=== PATIENT | male | born 1980 | race Two or more races ===

== ENCOUNTER 2017-10-09 19:47 | Emergency (ER) | payer BC ==
[2017-10-09] MEDS: fentaNYL PF VIAL 100 MCG/2 ML VIAL IV (21:04)
[2017-10-09] MEDS: ONDANSETRON PF 4 MG/2 ML VIAL. IV (21:04)
[2017-10-09 21:14] LABS: ADD MAN DIFF? NO
[2017-10-09 21:15] LABS: BASO % 0 % (0-3); EOS # 0.1 x10^3/uL (0.0-0.7); EOS % 1 % (0-3); HEMATOCRIT 41.7 % (39.0-53.0); HEMOGLOBIN 14.4 g/dL (13.0-17.5); LYMPH # 2.1 x10^3/uL (1.0-4.8); LYMPH % 17 % (24-48); MEAN CORPUSCULAR HEMOGLOBIN 32 pg (25-35); MEAN CORPUSCULAR HGB CONC 35 g/dL (31-37); MEAN CORPUSCULAR VOLUME 91 fL (79-100); MONO % 8 % (0-9); NEUT # 9.1 x10^3uL (1.8-7.7); NEUT % 73 % (31-73); PLATELET COUNT 179 x10^3/uL (140-400); RED BLOOD COUNT 4.57 x10^6/uL (4.30-5.70); WHITE BLOOD COUNT 12.4 x10^3/uL (4.0-11.0)
[2017-10-09 21:29] LABS: ANION GAP 8 (6-14); BLOOD UREA NITROGEN 12 mg/dL (8-26); BUN/CREATININE RATIO 15 (6-20); CALCIUM 8.8 mg/dL (8.5-10.1); CARBON DIOXIDE 24 mmol/L (21-32); CHLORIDE 104 mmol/L (98-107); CREATININE 0.8 mg/dL (0.7-1.3); GFR 107.6; GLUCOSE 113 mg/dL (70-99); POTASSIUM 3.3 mmol/L (3.5-5.1); SODIUM 136 mmol/L (136-145)
[2017-10-09] MEDS ORDERED: CONTRAST GIVEN MC (21:30)
[2017-10-09 21:35] LABS: ALBUMIN 3.5 g/dL (3.4-5.0); ALBUMIN/GLOBULIN RATIO 0.8 (1.0-1.7); ALK PHOS 119 U/L (46-116); ALT (SGPT) 49 U/L (16-63); AST (SGOT) 23 U/L (15-37); TOTAL BILIRUBIN 0.6 mg/dL (0.2-1.0); TOTAL PROTEIN 7.9 g/dL (6.4-8.2)
[2017-10-09] MEDS: IOHEXOL 300 MG/ML 100ML VIAL. IV (21:49)
[2017-10-09] MEDS: AMPICILLIN/SULBACTAM 3 GM in IV NORMAL SALINE 100ML 100 ML IV (22:08)
== END 2017-10-09 23:05 | disposition short-term general hospital (02) ==
LOC: ER 19:47
DX: J36 Peritonsillar abscess (principal); R59.0 Localized enlarged lymph nodes
CPT/HCPCS: 36415; 70491; 80053; 85025; 96365; 96375; 99285-25; J0295; J2405; J3010; Q9967

== ENCOUNTER 2020-10-14 20:08 | Emergency (ER) | payer BC ==
[~2020-10-14] VITALS: Ht 167.6 cm; Wt 81.8 kg
--- NOTE | 2020-10-14 21:07 | PHYS DOC ---
Past Medical History Past Medical History: No Pertinent History Past Surgical History: No Surgical History Smoking Status: Current Some Day Smoker Alcohol Use: None Drug Use: None General Adult EDM: Chief Complaint: MECHANICAL FALL HPI: HPI: Patient is a 40 year old male who fell off a ladder about 9 feet above the ground while he was painting his house. Patient hit the right side head on the ground, did not lose consciousness. Patient also hit his right shoulder on the ground. He is complaining of right thigh pain, right shoulder pain, headache and right ear pain. He denied any nausea or vomiting, no neck pain, no back pain, no hip pain, no pelvic pain. Review of Systems: Review of Systems: Constitutional: Denies fever or chills. [] Eyes: Denies change in visual acuity. [] HENT: Denies nasal congestion or sore throat. [] Respiratory: Denies cough or shortness of breath. [] Cardiovascular: Denies chest pain or edema. [] GI: Denies abdominal pain, nausea, vomiting, bloody stools or diarrhea. [] : Denies dysuria. [] Musculoskeletal: Denies back pain , positive for right thigh pain, right shoulder pain, neck pain. Integument: Positive for right ear laceration. Neurologic: Positive for headache, no focal weakness or sensory changes. [] Endocrine: Denies polyuria or polydipsia. [] Lymphatic: Denies swollen glands. [] Psychiatric: Denies depression or anxiety. [] Heart Score: C/O Chest Pain: N/A Risk Factors: Risk Factors: DM, Current or recent (<one month) smoker, HTN, HLP, family history of CAD, obesity. Risk Scores: Score 0 - 3: 2.5% MACE over next 6 weeks - Discharge Home Score 4 - 6: 20.3% MACE over next 6 weeks - Admit for Clinical Observation Score 7 - 10: 72.7% MACE over next 6 weeks - Early Invasive Strategies Allergies: Allergies: Allergies Coded Allergies Type Severity Reaction Last Updated Verified No Known Drug Allergies 10/09/17 No Physical Exam: PE: Constitutional: Well developed, well nourished, no acute distress, non-toxic appearance. [] HENT: Normocephalic, 3 CM LACERATION ON RIGHT TEMPORAL AREA, bilateral external ears normal, oropharynx moist, no oral exudates, nose normal. [] Eyes: PERRLA, EOMI, conjunctiva normal, no discharge. [] Neck: Normal range of motion, no tenderness, supple, no stridor. [] Cardiovascular:Heart rate regular rhythm, no murmur [] Lungs & Thorax: Bilateral breath sounds clear to auscultation [] Abdomen: Bowel sounds normal, soft, no tenderness, no masses, no pulsatile shay s. [] Skin: 3.5 CM LACERATION ON RIGHT SIDE TEMPORAL AREA, RIGHT EAR LOBE LACERATION AT THE ANTIHELIX, 2.5 cm , 1.5 cm laceration on the back of right earlobe, NO THROUGH AND THROUGH, Back: No tenderness, no CVA tenderness. [] Extremities: RIGHT MID THIGH TENDER TO PALPATION, RIGHT SHOULDER IS TENDER TO PALPATION, THERE IS FULL RANGE OF MOTION, no cyanosis, no clubbing, ROM intact, no edema. [] Neurologic: Alert and oriented X 3, normal motor function, normal sensory function, no focal deficits noted. [] Psychologic: Affect normal, judgement normal, mood normal. [] EKG: EKG: [] Radiology/Procedures: Radiology/Procedures: [][facility] [address] [place] [address] IMAGING REPORT Signed PATIENT: CATHI WEBER AACCOUNT: [id number] : 1980 LOCATION: ER AGE: 40 SEX: M EXAM STATUS: REG ER ORD. PHYSICIAN: ABDIFATAH MULLER DO REASON: FELL , CHEST PAIN PROCEDURE: CHEST AP ONLY EXAM: 1. CHEST ONE VIEW. 2. RIGHT SHOULDER 3 VIEWS. 3. RIGHT FEMUR 2 VIEWS. HISTORY: Fall, pain. COMPARISON: None. FINDINGS: There are no confluent infiltrates. There is no pneumothorax or pleural effusion. The heart is not enlarged. No fractures are identified at the right shoulder. Acromioclavicular osteoarthr itis appears mild. Glenohumeral joint spaces and alignment appear maintained. No fractures are appreciated within the right femur. Small osteophytes indicate mild right hip osteoarthritis. There is moderately decreased femoral head/neck offset anteriorly. The joint spaces and alignment of the right knee appear maintained. IMPRESSION: 1. No confluent infiltrates. 2. Mild right acromioclavicular osteoarthritis. 3. Mild right hip osteoarthritis. Electronically signed by: Ashleigh Jama MD (10/14/2020 10:03 PM) [facility] DICTATED and SIGNED BY: ABDIAS JAMA MD DATE: 10/14/[id number] 0 [facility] [address] [place] [address] IMAGING REPORT Signed PATIENT: CATHI WEBER AACCOUNT: [id number] : 1980 LOCATION: ER AGE: 40 SEX: M EXAM STATUS: REG ER ORD. PHYSICIAN: ABDIFATAH MULLER DO REASON: fell off a 9 ft ladder PROCEDURE: CT HEAD AND CERVICAL SPINE WO Exam: CT head and cervical spine INDICATION: Fall off 9 foot ladder TECHNIQUE: Sequential axial images through the head and cervical spine were obtained without the administration of IV contrast. Exposure: One or more of the following in the visualized dose reduction techniques were utilized for this examination: 1. Automated exposure control 2. Adjustment of the MA and/or KV according to patient size 3. Use of iterative of reconstructive technique Comparisons: None FINDINGS: Head: No focal parenchymal lesion or hemorrhage is identified. There is no midline shift or sulcal effacement. No acute vascular territory infarction is identified. Mcneil-white distinction is preserved. The ventricular system is within normal limits without compression hydrocephalus. The basal cisterns are well maintained. The visualized portions of the paranasal sinuses and mastoid air cells are well- pneumatized. No acute fractures. Cervical spine: Straightening of cervical spine which may positional. Vertebral body heights are well-maintained. Fracture to the cervical spine is is not identified. Multilevel spondylotic change in cervical spine. Visualized paraspinal soft tissues are unremarkable. IMPRESSION: 1. No acute intracranial abnormality. 2. Negative CT C-spine for acute traumatic injury. Electronically signed by: Angela Butler MD (10/14/2020 9:15 PM) [facility] DICTATED and SIGNED BY: ANGELA BUTLER MD DATE: 10/14/[id number] 0 Laceration Procedure #1: Location: right temporal scalp area Anesthesia: 20 ml 1% lidocaine with epi total lenght of laceration: 3.5 cm Number of jillian: 7 Suture Material: staple Technique: simple interuptus. Patient tolerated procedure well. The wound was dressed with: gauze. Laceration Procedure # 2 Location: right earlobe anterior part Anesthesia: marcaine .5% total lenght of laceration: 2.5 cm Number of sutures: 7 Suture Material: 5-0-prolene Technique: simple interuptus Patient tolerated procedure well. The wound was dressed with: nonstick gauze Laceration Procedure # 3 Location: back of right ear Anesthesia: marcaine .5 % total lenght of laceration: 1.5 cm Number of sutures: 3 Suture Material: 5-0-prolen Technique: simple interuptus. Patient tolerated procedure well. The wound was dressed with: nonstick gauze Course & Med Decision Making: Course & Med Decision Making Pertinent Labs and Imaging studies reviewed. (See chart for details) Patient is a 40-year-old male who fell off a ladder at home, sustaining laceration to his right earlobe, it was repaired in the ED. Patient also have a laceration. Right femoral area it was repair was stable. CT scan head head C- spine did not show any acute problem, x-ray of right shoulder, right femur and right knee did not show any fracture. Patient was discharged in stable cond ition. Dragon Disclaimer: Dragon Disclaimer: This electronic medical record was generated, in whole or in part, using a voice recognition dictation system. Departure Departure Impression: Primary Impression: Head injury Additional Impressions: Scalp laceration Laceration of earlobe Contusion of shoulder, right Disposition: 01 HOME / SELF CARE / HOMELESS Condition: STABLE Referrals: TRACY WANG MD (PCP) Follow up with your doctor in 7 days for sutures removal Patient Instructions: Head Injury, Adult, Laceration Care, Adult, VIS, Tetanus, Diphtheria, and Pertussis (Tdap) - CDC Additional Instructions: Thank you for visiting our Emergency Department. We appreciate you trusting us with your care. If any additional problems come up don't hesitate to return to visit us. Please follow up with your primary care provider so they can plan additional care if needed and know about the problem that you had. If symptoms worsen come back to the Emergency Department. Any concerning symptoms that start such as chest pain, shortness of air, weakness or numbness on one side of the body, running high fevers or any other concerning symptoms return to the ER. Scripts Hydrocodone/Acetaminophen (Hydrocodone-Acetamin 5-325 mg) 1 Each Tablet 1 EACH PO Q6HRS PRN for PAIN, #15 TAB Prov: ABDIFATAH MULLER DO 10/15/20 ABDIFATAH MULLER DO Oct 14, 2020 21:07
--- NOTE | 2020-10-14 21:18 | RAD ---
Exam: CT head and cervical spine INDICATION: Fall off 9 foot ladder TECHNIQUE: Sequential axial images through the head and cervical spine were obtained without the admi nistration of IV contrast. Exposure: One or more of the following in the visualized dose reduction techniques were utilized for this examination: 1. Automated exposure control 2. Adjustment of the MA and/or KV according to patient size 3. Use of iterative of reconstructive technique Comparisons: None FINDINGS: Head: No focal parenchymal lesion or hemorrhage is identified. There is no midline shift or sulcal effaceme nt. No acute vascular territory infarction is identified. Mcneil-white distinction is preserved. The ventricular system is within normal limits without compression hydrocephalus. The basal cisterns are well maintained. The visualized portions of the paranasal sinuses and mastoid air cells are well-pneumatized. No acute fractures. Cervical spine: Straightening of cervical spine which may positional. Vertebral body heights are well-maintained. Fracture to the cervical spine is is not identified. Multilevel spondylotic change in cervical spine. Visualized paraspinal soft tissues are unremarkable. IMPRESSION: 1. No acute intracranial abnormality. 2. Negative CT C-spine for acute traumatic injury. Electronically signed by: Angela Maria MD (10/14/2020 9:15 PM) [facility]
[2020-10-14] MEDS ORDERED: HYDROcodone/APAP 5/325MG 1 TAB TABLET PO ONE (21:30)
[2020-10-14] MEDS ORDERED: DIPH,PERTUSS(ACELL),TET VAC/PF 0.5 ML SYRINGE. VAX IM ONE (22:00)
[2020-10-14] MEDS ORDERED: BUPIVACAINE MPF 0.5% 30 ML VIAL. INJ ONE (22:00)
[2020-10-14] MEDS ORDERED: LIDOCAINE 1%/EPI 1:100,000 20 ML VIAL. INJ ONE (22:00)
--- NOTE | 2020-10-14 22:05 | RAD ---
EXAM: 1. CHEST ONE VIEW. 2. RIGHT SHOULDER 3 VIEWS. 3. RIGHT FEMUR 2 VIEWS. HISTORY: Fall, pain. COMPARISON: None. FINDINGS: There are no confluent infiltrates. There is no pneumothorax or pleural effusion. The heart is not en larged. No fractures are identified at the right shoulder. Acromioclavicular osteoarthritis appears mild. Gle nohumeral joint spaces and alignment appear maintained. No fractures are appreciated within the right femur. Small osteophytes indicate mild right hip osteoa rthritis. There is moderately decreased femoral head/neck offset anteriorly. The joint spaces and ali gnment of the right knee appear maintained. IMPRESSION: 1. No confluent infiltrates. 2. Mild right acromioclavicular osteoarthritis. 3. Mild right hip osteoarthritis. Electronically signed by: Ashleigh Jama MD (10/14/2020 10:03 PM) [facility]
[2020-10-15] MEDS ORDERED: HYDR-2759 PO (00:19)
[2020-10-15 00:30] VITALS: BP 123/85
== END 2020-10-15 00:40 | disposition home or self-care (01) ==
LOC: ER 20:08
DX: S01.01XA Laceration without foreign body of scalp, initial encounter (principal); S01.311A Laceration without foreign body of right ear, initial encounter; S40.011A Contusion of right shoulder, initial encounter; S09.8XXA Other specified injuries of head, initial encounter; Z87.891 Personal history of nicotine dependence; W11.XXXA Fall on and from ladder, initial encounter; Y93.89 Activity, other specified; Y92.89 Other specified places as the place of occurrence of the external cause; Y99.8 Other external cause status
CPT/HCPCS: 12002; 12013; 70450; 71045; 72125; 73030; 73552; 90471; 90715; 99285; A4565; J3490